=== PATIENT | female | born 1955 | race Caucasian/White ===

== ENCOUNTER → 2016-09-13 | Outpatient (CLI) | payer BC, OTHER ==
[~2016-09-13] MED LIST: ASPI81TAEC PO; CETI10TA PO; NORC1TAB4 PO; SENO8.6T10 PO; VITA100066 PO; VITAE20CA PO; VITMTA PO
== END ==
LOC: M WUC 17:14
PROVIDERS: ATTEND Internal Medicine Pulmonary Disease
DX: R06.02 Shortness of breath (principal)

== ENCOUNTER → 2016-10-05 | Outpatient (CLI) | payer BC, OTHER ==
[~2016-10-05] MED LIST changes: +METHACHOLINE KIT (J7674) INH ONE
--- NOTE | 2016-10-05 15:11 | PFTRPT ---
Tech: Alison COVARRUBIAS RRT Age: 61 Sex: Female Race: Height: 50.50 Inches Weight: 194.00 Lbs BSA: 1.63 Diagnosis: R06.02 METHACHOLINE CHALLENGE REPORT: ORDERING PROVIDER: Sandor Colin M.D. DATE OF SERVICE: 10/05/16 INTERPRETATION: The study was of excellent technical quality. Under protocol, methacholine was administered. Even after a maximal dose of 25 mg (188.875 CDUs) of methacholine , no provocation dose was ever achieved. IMPRESSION: Negative methacholine challenge study. MTDD
== END ==
LOC: M CARPUL 13:41
PROVIDERS: ATTEND Internal Medicine Pulmonary Disease
DX: R06.02 Shortness of breath (principal)

== ENCOUNTER → 2018-04-25 | Outpatient (CLI) | payer BC, OTHER ==
[~2018-04-25] MED LIST changes: -METHACHOLINE KIT (J7674) INH ONE
[2018-04-25 18:42] LABS: HEMATOCRIT 39.8 % (36.0-47.0); HEMOGLOBIN 13.3 g/dl (12.0-15.5); MEAN CORPUSCULAR HEMOGLOBIN 29.7 pg (27.0-33.0); MEAN CORPUSCULAR HGB CONC 33.4 g/dl (32.0-36.5); MEAN CORPUSCULAR VOLUME 88.8 fl (80.0-96.0); PLATELET COUNT, AUTOMATED 159 10^3/uL (150-450); RED BLOOD COUNT 4.48 10^6/uL (4.00-5.40); WHITE BLOOD COUNT 6.7 10^3/uL (4.0-10.0)
[2018-04-25 19:02] LABS: INR 0.96; PARTIAL THROMBOPLASTIN TIME 30.6 SECONDS (25.4-37.6); PROTHROMBIN TIME 12.9 SECONDS (12.1-14.4)
[2018-04-25 19:10] LABS: ALBUMIN 3.8 GM/DL (3.2-5.2); ALT/SGPT 31 U/L (12-78); BILIRUBIN,DIRECT < 0.1 MG/DL (0.0-0.2); BILIRUBIN,TOTAL 0.3 MG/DL (0.2-1.0); BLOOD UREA NITROGEN 12 MG/DL (7-18); CALCIUM LEVEL 9.7 MG/DL (8.8-10.2); CARBON DIOXIDE LEVEL 29 MEQ/L (21-32); CHLORIDE LEVEL 105 MEQ/L (98-107); CREATININE FOR GFR 0.69 MG/DL (0.55-1.30); FERRITIN 260 NG/ML (8-252); GLOMERULAR FILTRATION RATE > 60.0 (>45); GLUCOSE, FASTING 104 MG/DL (70-100); IRON (FE) 75 UG/DL (50-170); PERCENT SATURATION 24.6 % (13.2-45.0); POTASSIUM SERUM 3.9 MEQ/L (3.5-5.1); SODIUM LEVEL 141 MEQ/L (136-145); TOTAL 25(OH) VITAMIN D 46.9 NG/ML (30.0-100.0); TOTAL IRON BINDING CAPACITY 305 UG/DL (250-450); TOTAL PROTEIN 7.2 GM/DL (6.4-8.2)
[2018-04-26 10:43] LABS: HEPATITIS A ANTIBODY IGM NEGATIVE (NEGATIVE); HEPATITIS B SURFACE ANTIGEN NEGATIVE (NEGATIVE); HEPATITIS C VIRUS ABY INDEX 0.1 INDEX (<0.8)
[2018-04-26 10:49] LABS: HEPATITIS B SURFACE ANTIBODY NEGATIVE (POSITIVE)
== END ==
LOC: M LAB 15:45
PROVIDERS: ATTEND Internal Medicine Gastroenterology
DX: K59.1 Functional diarrhea (principal); R14.3 Flatulence; R94.5 Abnormal results of liver function studies; Z12.11 Encounter for screening for malignant neoplasm of colon; K76.0 Fatty (change of) liver, not elsewhere classified

== ENCOUNTER → 2018-04-26 | Outpatient (REF) | payer BC, OTHER | LOC: M LAB REF 10:37 | PROVIDERS: ATTEND Surgery | DX: K59.1 Functional diarrhea (principal); R14.3 Flatulence; Z12.11 Encounter for screening for malignant neoplasm of colon ==

== ENCOUNTER → 2018-04-28 | Outpatient (REF) | payer BC, OTHER | LOC: M LAB REF 10:17 | PROVIDERS: ATTEND Internal Medicine Gastroenterology | DX: Z12.11 Encounter for screening for malignant neoplasm of colon (principal); K64.5 Perianal venous thrombosis; K59.1 Functional diarrhea; R14.3 Flatulence; K76.0 Fatty (change of) liver, not elsewhere classified; R94.5 Abnormal results of liver function studies ==

== ENCOUNTER → 2018-06-28 | Outpatient (CLI) | payer BC, OTHER ==
[~2018-06-28] MED LIST changes: -NORC1TAB4 PO; +NORC1TAB7 PO
[2018-06-28 12:18] LABS: INR 0.97
[2018-06-28 12:19] LABS: PARTIAL THROMBOPLASTIN TIME 28.1 SECONDS (25.4-37.6)
== END ==
LOC: M LAB 11:30
PROVIDERS: ATTEND Internal Medicine Gastroenterology
DX: R94.5 Abnormal results of liver function studies (principal); K76.0 Fatty (change of) liver, not elsewhere classified

== ENCOUNTER → 2018-07-07 | Outpatient (CLI) | payer BC, OTHER ==
[~2018-07-07] MED LIST changes: +LIDOCAINE 1% MDV 20ML VIAL As Ordered ONE
--- NOTE | 2018-07-07 17:28 | REP ---
ULTRASOUND-GUIDED LIVER BIOPSY The procedure was performed under the direct supervision of Dr. Mcguire. The risks and benefits of the procedure were explained to the patient and informed consent was obtained. The left lobe of the liver was localized using ultrasound guidance. The skin was prepped and draped in a sterile fashion. 1% lidocaine was used as a local anesthetic. Using ultrasound guidance a 19/20 gauge coaxial needle biopsy system was inserted and advanced into the liver. Five core biopsy samples were obtained and sent to lab. The patient tolerated the procedure well and there were no immediate complications. After the appropriate amount of monitored convalescence the patient was discharged from the department. Reviewed by INES Harp 07/07/2018 03:18 P Electronically Signed by Theodore Mcguire MD 07/07/2018 05:19 P
== END ==
LOC: M RADPRO 08:40
PROVIDERS: ATTEND Internal Medicine Gastroenterology
DX: K74.0 Hepatic fibrosis (principal); K75.9 Inflammatory liver disease, unspecified; K76.0 Fatty (change of) liver, not elsewhere classified; R94.5 Abnormal results of liver function studies; Z88.0 Allergy status to penicillin; Z88.2 Allergy status to sulfonamides

== ENCOUNTER → 2018-11-03 | Outpatient (CLI) | payer BC, OTHER ==
[~2018-11-03] MED LIST changes: -LIDOCAINE 1% MDV 20ML VIAL As Ordered ONE
[2018-11-03 09:28] LABS: HEMOGLOBIN 13.8 g/dl (12.0-15.5); MEAN CORPUSCULAR HEMOGLOBIN 29.6 pg (27.0-33.0); MEAN CORPUSCULAR HGB CONC 33.7 g/dl (32.0-36.5); PLATELET COUNT, AUTOMATED 144 10^3/uL (150-450); RED BLOOD COUNT 4.66 10^6/uL (4.00-5.40); WHITE BLOOD COUNT 5.9 10^3/uL (4.0-10.0)
[2018-11-03 09:40] LABS: INR 1.06; PROTHROMBIN TIME 13.5 SECONDS (11.8-14.0)
[2018-11-03 09:53] LABS: ALT/SGPT 27 U/L (12-78); BILIRUBIN,TOTAL 0.5 MG/DL (0.2-1.0); BLOOD UREA NITROGEN 18 MG/DL (7-18); CALCIUM LEVEL 9.7 MG/DL (8.8-10.2); CARBON DIOXIDE LEVEL 28 MEQ/L (21-32); CHLORIDE LEVEL 109 MEQ/L (98-107); CREATININE FOR GFR 0.74 MG/DL (0.55-1.30); GLOMERULAR FILTRATION RATE > 60.0 (>45); GLUCOSE, FASTING 90 MG/DL (70-100); POTASSIUM SERUM 3.8 MEQ/L (3.5-5.1); SODIUM LEVEL 143 MEQ/L (136-145); TOTAL PROTEIN 7.3 GM/DL (6.4-8.2)
== END ==
LOC: M LAB 08:29
PROVIDERS: ATTEND Internal Medicine Gastroenterology
DX: K76.0 Fatty (change of) liver, not elsewhere classified (principal); R14.0 Abdominal distension (gaseous); R11.0 Nausea; R94.5 Abnormal results of liver function studies

== ENCOUNTER → 2019-05-16 | Outpatient (CLI) | payer BC, OTHER ==
[2019-05-16 12:54] LABS: MEAN CORPUSCULAR HEMOGLOBIN 28.9 pg (27.0-33.0); MEAN CORPUSCULAR HGB CONC 33.3 g/dl (32.0-36.5); MEAN CORPUSCULAR VOLUME 86.8 fl (80.0-96.0); PLATELET COUNT, AUTOMATED 165 10^3/uL (150-450); RED BLOOD COUNT 4.84 10^6/uL (4.00-5.40); WHITE BLOOD COUNT 6.8 10^3/uL (4.0-10.0)
[2019-05-16 13:35] LABS: ALBUMIN 4.1 GM/DL (3.2-5.2); ALT/SGPT 25 U/L (12-78); BILIRUBIN,TOTAL 0.3 MG/DL (0.2-1.0); BLOOD UREA NITROGEN 15 MG/DL (7-18); CALCIUM LEVEL 10.6 MG/DL (8.8-10.2); CARBON DIOXIDE LEVEL 33 MEQ/L (21-32); CHLORIDE LEVEL 105 MEQ/L (98-107); CREATININE FOR GFR 0.67 MG/DL (0.55-1.30); GLOMERULAR FILTRATION RATE > 60.0 (>45); GLUCOSE, FASTING 96 MG/DL (70-100); POTASSIUM SERUM 4.3 MEQ/L (3.5-5.1); SODIUM LEVEL 140 MEQ/L (136-145); TOTAL PROTEIN 7.4 GM/DL (6.4-8.2)
== END ==
LOC: M LAB 12:16
PROVIDERS: ATTEND Internal Medicine Gastroenterology
DX: R94.5 Abnormal results of liver function studies (principal)

== ENCOUNTER → 2019-05-28 | Outpatient (CLI) | payer BC, OTHER ==
--- NOTE | 2019-05-28 09:42 | REP ---
RIGHT UPPER QUADRANT ULTRASOUND: Real-time sonographic evaluation of the right upper quadrant performed. The patient has had prior cholecystectomy. There is no intrahepatic or extrahepatic biliary dilatation. Common bile duct measures 7 mm. Echotexture of the liver is mildly heterogeneously and echogenic suggesting mild fibrofatty infiltration. The pancreatic tail is not well visualized due to overlying bowel gas. No gross liver or pancreatic mass is seen. Right kidney demonstrates no hydronephrosis with normal size 10.5 cm in length. There is no free fluid. IMPRESSION: Status post cholecystectomy without biliary dilatation or free fluid. Possible mild fibrofatty infiltration of the liver. Electronically Signed by Sheldon Alberts MD 05/28/2019 01:22 P
== END ==
LOC: M RAD 07:43
PROVIDERS: ATTEND Nurse Practitioner Family
DX: K76.0 Fatty (change of) liver, not elsewhere classified (principal)

== ENCOUNTER → 2019-08-07 | Outpatient (REF) | payer BC, OTHER | LOC: M WUC 13:08 | PROVIDERS: ATTEND Physician Assistant | DX: J02.9 Acute pharyngitis, unspecified (principal); Z11.59 Encounter for screening for other viral diseases | CPT/HCPCS: 87081; 87502; U0003 ==

== ENCOUNTER → 2020-01-08 | Outpatient (CLI) | payer BC, OTHER | LOC: M LAB 08:07 | PROVIDERS: ATTEND Internal Medicine Gastroenterology | DX: R94.5 Abnormal results of liver function studies (principal); K75.81 Nonalcoholic steatohepatitis (NASH) ==

== ENCOUNTER 2020-01-18 17:14 | Emergency (ER) | payer BC, OTHER ==
[~2020-01-18] VITALS: Ht 147.3 cm; Wt 77.8 kg
--- NOTE | 2020-01-18 18:02 | REPVR ---
PROCEDURE INFORMATION: Exam: US Duplex Left Lower Extremity Veins, Limited Exam date and time: 01/18/2020 5:53 PM Age: 64 years old Clinical indication: Pain; Leg, upper; Left; Additional info: Swelling pain/ RO dvt TECHNIQUE: Imaging protocol: Real-time Duplex ultrasound of the Left Lower Extremity with 2-D valentine scale, color Doppler flow and spectral waveform analysis with image documentation. Limited exam focused on the left lower extremity veins. COMPARISON: US Duplex, Ext,LOWER veins,unilat 10/11/2015 8:08 PM FINDINGS: Left deep veins: Unremarkable. The common femoral, femoral, proximal profunda femoral and popliteal veins are patent without thrombus. Normal Doppler waveforms. Normal compressibility and/or augmentation response. Left superficial veins: Unremarkable. Saphenofemoral junction is patent without thrombus. Soft tissues: Unremarkable. IMPRESSION: No evidence of deep vein thrombosis. Electronically signed by: Mitch Chen On 01/18/2020 18:02:20 PM
[2020-01-18 18:48] VITALS: BP 129/79
== END 2020-01-18 18:50 | disposition home or self-care (01) ==
LOC: M ED 17:14
DX: M79.661 Pain in right lower leg (principal); J45.909 Unspecified asthma, uncomplicated; K76.0 Fatty (change of) liver, not elsewhere classified; Z88.0 Allergy status to penicillin; Z88.2 Allergy status to sulfonamides; Z79.899 Other long term (current) drug therapy; Z79.82 Long term (current) use of aspirin

== ENCOUNTER → 2020-02-15 | Outpatient (CLI) | payer BC, OTHER ==
[2020-02-15 09:55] LABS: HEMATOCRIT 42.3 % (36.0-47.0); HEMOGLOBIN 13.8 g/dl (12.0-15.5); MEAN CORPUSCULAR HEMOGLOBIN 28.8 pg (27.0-33.0); MEAN CORPUSCULAR HGB CONC 32.6 g/dl (32.0-36.5); MEAN CORPUSCULAR VOLUME 88.1 fl (80.0-96.0); PLATELET COUNT, AUTOMATED 148 10^3/uL (150-450); WHITE BLOOD COUNT 5.3 10^3/uL (4.0-10.0)
[2020-02-15 10:07] LABS: INR 0.98; PROTHROMBIN TIME 13.2 SECONDS (12.5-14.3)
[2020-02-15 10:23] LABS: ALT/SGPT 23 U/L (12-78); BILIRUBIN,TOTAL 0.5 MG/DL (0.2-1.0); BLOOD UREA NITROGEN 15 MG/DL (7-18); CARBON DIOXIDE LEVEL 28 MEQ/L (21-32); CHLORIDE LEVEL 108 MEQ/L (98-107); CREATININE FOR GFR 0.77 MG/DL (0.55-1.30); GLOMERULAR FILTRATION RATE > 60.0 (>45); GLUCOSE, FASTING 83 MG/DL (70-100); POTASSIUM SERUM 4.3 MEQ/L (3.5-5.1); SODIUM LEVEL 141 MEQ/L (136-145); TOTAL PROTEIN 7.3 GM/DL (6.4-8.2)
--- NOTE | 2020-02-15 16:27 | REP ---
INDICATION: RAO US 1ST LABS NEXT COMPARISON: 05/28/2019 TECHNIQUE: Real time valentine scale ultrasound examination using curved array transducer. FINDINGS: Liver is normal in contour, size, and echogenicity without focal hepatic lesions identified. Pancreas is incompletely evaluated due to interposed bowel gas. The gallbladder has been surgically removed. No biliary ductal dilatation is appreciated and the common bile duct measures 6.3 mm diameter. Right kidney is normal in reniform shape without hydronephrosis and measures 11.3 x 4.1 x 5.4 cm. No ascites in the visualized right upper quadrant. IMPRESSION: Normal limited right upper quadrant ultrasound evidence for prior cholecystectomy. <Electronically signed by Mode Conner > 02/15/20 [id number]
== END ==
LOC: M RAD 08:01
PROVIDERS: ATTEND Internal Medicine Gastroenterology
DX: K75.81 Nonalcoholic steatohepatitis (NASH) (principal); Z12.11 Encounter for screening for malignant neoplasm of colon; Z80.0 Family history of malignant neoplasm of digestive organs; Z90.49 Acquired absence of other specified parts of digestive tract

== ENCOUNTER → 2020-04-10 | Outpatient (CLI) | payer BC, OTHER | LOC: M LABSMTC 11:30 | PROVIDERS: ATTEND Family Medicine | DX: Z20.822 Contact with and (suspected) exposure to COVID-19 (principal) ==

== ENCOUNTER → 2020-10-01 | Outpatient (CLI) | payer BC, OTHER ==
[~2020-10-01] MED LIST changes: +ASPI-569 PO; -ASPI81TAEC PO
--- NOTE | 2020-10-01 09:08 | REP ---
INDICATION: RAO *US 1ST, LABS 2ND* COMPARISON: 02/15/2020 TECHNIQUE: Real time valentine scale ultrasound examination using curved array transducer. FINDINGS: Liver is normal in contour, size, and echogenicity without focal hepatic lesions identified. Pancreas is normal in contour, size, and echogenicity. Evidence for prior cholecystectomy. No biliary ductal dilatation is appreciated and the common bile duct measures 6.0 mm diameter. Right kidney is normal in reniform shape without hydronephrosis and measures 10.0 x 5.4 x 4.3 cm. No ascites in the visualized right upper quadrant. IMPRESSION: Normal limited right upper quadrant ultrasound Current examination without significant hepatosteatosis suggested. <Electronically signed by Mode Conner > 10/01/20 [id number]
[2020-10-01 09:53] LABS: HEMATOCRIT 43.3 % (36.0-47.0); HEMOGLOBIN 14.1 g/dl (12.0-15.5); MEAN CORPUSCULAR HGB CONC 32.6 g/dl (32.0-36.5); MEAN CORPUSCULAR VOLUME 88.9 fl (80.0-96.0); PLATELET COUNT, AUTOMATED 155 10^3/uL (150-450); RED BLOOD COUNT 4.87 10^6/uL (4.00-5.40)
[2020-10-01 10:30] LABS: ALBUMIN 3.8 GM/DL (3.2-5.2); ALT/SGPT 23 U/L (12-78); BILIRUBIN,TOTAL 0.4 MG/DL (0.2-1.0); BLOOD UREA NITROGEN 14 MG/DL (7-18); CALCIUM LEVEL 9.6 MG/DL (8.8-10.2); CARBON DIOXIDE LEVEL 33 MEQ/L (21-32); CHLORIDE LEVEL 107 MEQ/L (98-107); CREATININE FOR GFR 0.72 MG/DL (0.55-1.30); GLOMERULAR FILTRATION RATE > 60.0 (>45); GLUCOSE, FASTING 84 MG/DL (70-100); POTASSIUM SERUM 4.4 MEQ/L (3.5-5.1); SODIUM LEVEL 140 MEQ/L (136-145); TOTAL PROTEIN 7.1 GM/DL (6.4-8.2)
== END ==
LOC: M RAD 07:52
PROVIDERS: ATTEND Student in an Organized Health Care Education/Training Program
DX: K75.81 Nonalcoholic steatohepatitis (NASH) (principal); K76.0 Fatty (change of) liver, not elsewhere classified; Z88.2 Allergy status to sulfonamides

== ENCOUNTER → 2021-01-27 | Outpatient (REF) | payer BC, OTHER | LOC: M LAB REF 11:15 | PROVIDERS: ATTEND Internal Medicine | DX: E83.52 Hypercalcemia (principal) ==

== ENCOUNTER → 2021-08-27 | Outpatient (CLI) | payer BC, OTHER | LOC: M WUC 09:19 | PROVIDERS: ATTEND Registered Nurse | DX: M54.2 Cervicalgia (principal) ==

== ENCOUNTER → 2022-04-06 | Outpatient (CLI) | payer BC, OTHER | LOC: M WUC 08:12 | PROVIDERS: ATTEND Physician Assistant | DX: S63.502A Unspecified sprain of left wrist, initial encounter (principal); S63.8X2A Sprain of other part of left wrist and hand, initial encounter; W18.30XA Fall on same level, unspecified, initial encounter; Y92.009 Unspecified place in unspecified non-institutional (private) residence as the place of occurrence of the external cause ==

== ENCOUNTER 2022-05-03 06:40 | Emergency (ER) | payer OTHER, BC ==
[~2022-05-03] VITALS: Ht 147.3 cm; Wt 88.2 kg
[2022-05-03 12:00] VITALS: BP 135/58
== END 2022-05-03 12:30 | disposition home or self-care (01) ==
LOC: M ED 06:40
DX: S83.92XA Sprain of unspecified site of left knee, initial encounter (principal); S43.402A Unspecified sprain of left shoulder joint, initial encounter; W10.9XXA Fall (on) (from) unspecified stairs and steps, initial encounter; Y92.89 Other specified places as the place of occurrence of the external cause; G47.30 Sleep apnea, unspecified; K76.0 Fatty (change of) liver, not elsewhere classified; Z88.0 Allergy status to penicillin; Z88.2 Allergy status to sulfonamides; Z79.82 Long term (current) use of aspirin; Z79.899 Other long term (current) drug therapy

== ENCOUNTER → 2022-07-02 | Outpatient (CLI) | payer OTHER | LOC: M PLAIMG 12:47 | PROVIDERS: ATTEND Physician Assistant | DX: S43.401A Unspecified sprain of right shoulder joint, initial encounter (principal); W18.30XA Fall on same level, unspecified, initial encounter; Y92.009 Unspecified place in unspecified non-institutional (private) residence as the place of occurrence of the external cause ==

== ENCOUNTER → 2022-11-02 | Outpatient (CLI) | payer OTHER | LOC: M WUC 08:10 | PROVIDERS: ATTEND Internal Medicine | DX: R06.02 Shortness of breath (principal) ==

== ENCOUNTER → 2022-11-24 | Outpatient (CLI) | payer BC, OTHER | LOC: M RAD 08:50 | PROVIDERS: ATTEND Internal Medicine | DX: R91.8 Other nonspecific abnormal finding of lung field (principal) ==

== ENCOUNTER → 2023-01-25 | Outpatient (REF) | payer BC, OTHER | LOC: M LAB REF 12:47 | PROVIDERS: ATTEND Internal Medicine | DX: J44.9 Chronic obstructive pulmonary disease, unspecified (principal); K75.81 Nonalcoholic steatohepatitis (NASH) ==

== ENCOUNTER → 2023-06-16 | Outpatient (CLI) | payer BC | LOC: M PLAIMG 10:05 | PROVIDERS: ATTEND Nurse Practitioner Family | DX: R91.8 Other nonspecific abnormal finding of lung field (principal) ==

== ENCOUNTER → 2023-08-18 | Outpatient (CLI) | payer BC | LOC: M WUC 08:09 | PROVIDERS: ATTEND Nurse Practitioner Family | DX: M25.572 Pain in left ankle and joints of left foot (principal) ==

== ENCOUNTER → 2023-10-17 | Outpatient (CLI) | payer BC | LOC: M WUC 10:10 | PROVIDERS: ATTEND Student in an Organized Health Care Education/Training Program | DX: M25.572 Pain in left ankle and joints of left foot (principal) ==

== ENCOUNTER → 2023-10-24 | Outpatient (REF) | payer BC ==
[2023-10-25 12:47] LABS: EBV AB TO NUCLEAR ANTIGEN < 18.00 U/mL (<18.00); EBV VIRAL CAPSID AG IGM < 36.00 U/mL (<36.00)
== END ==
LOC: M LAB REF 12:20
PROVIDERS: ATTEND Internal Medicine
DX: R53.83 Other fatigue (principal); R53.81 Other malaise; M25.50 Pain in unspecified joint

== ENCOUNTER → 2023-11-01 | Outpatient (CLI) | payer BC | LOC: M LAB 15:56 | PROVIDERS: ATTEND Internal Medicine Gastroenterology | DX: K75.81 Nonalcoholic steatohepatitis (NASH) (principal); R94.5 Abnormal results of liver function studies ==

== ENCOUNTER → 2023-11-07 | Outpatient (CLI) | payer BC ==
[2023-11-07 18:54] LABS: C REACTIVE PROTEIN QUANTITATIV 0.5 MG/DL (<1.0)
[2023-11-07 18:56] LABS: FREE T3 2.9 PG/ML (2.3-4.2)
== END ==
LOC: M WUC 12:55
PROVIDERS: ATTEND Internal Medicine
DX: M79.672 Pain in left foot (principal); R53.83 Other fatigue; M25.50 Pain in unspecified joint

== ENCOUNTER → 2024-01-24 | Outpatient (CLI) | payer MEDICARE ==
[2024-01-24 09:38] LABS: BLOOD UREA NITROGEN 11 MG/DL (9-23); CREATININE FOR GFR 0.62 MG/DL (0.55-1.30); GLOMERULAR FILTRATION RATE > 60.0 (>45)
== END ==
LOC: M LAB 08:23
PROVIDERS: ATTEND Internal Medicine Gastroenterology
DX: Z01.812 Encounter for preprocedural laboratory examination (principal)

== ENCOUNTER → 2024-01-30 | Outpatient (CLI) | payer MEDICARE ==
[~2024-01-30] MED LIST changes: +GASTROGRAFIN SOLUTION 30ML As Ordered ONE; +ISOVUE-370 76% 100ML VIAL As Ordered ONE
== END ==
LOC: M RAD 11:58
PROVIDERS: ATTEND Internal Medicine Gastroenterology
DX: R74.01 Elevation of levels of liver transaminase levels (principal)
CPT/HCPCS: 74177; Q9963; Q9967

== ENCOUNTER → 2024-03-02 | Outpatient (REF) | payer MEDICARE ==
[~2024-03-02] MED LIST changes: -GASTROGRAFIN SOLUTION 30ML As Ordered ONE; -ISOVUE-370 76% 100ML VIAL As Ordered ONE
== END ==
LOC: M LAB REF 16:44
PROVIDERS: ATTEND Internal Medicine
DX: M25.50 Pain in unspecified joint (principal)

== ENCOUNTER → 2024-03-06 | Outpatient (REF) | payer MEDICARE ==
[2024-03-06 12:53] LABS: APPEARANCE, URINE HAZY (CLEAR); BACTERIA, URINE AUTO NEGATIVE (NEGATIVE); BILIRUBIN, URINE AUTO NEGATIVE (NEGATIVE); BLOOD, URINE BLOOD NEGATIVE (NEGATIVE); CALCIUM OXALATE CRYSTALS SMALL; COLOR, URINE YELLOW (YELLOW); GLUCOSE, URINE (UA) AUTO NEGATIVE (NEGATIVE); KETONE, URINE AUTO NEGATIVE (NEGATIVE); LEUKOCYTE ESTERASE, URINE AUTO NEGATIVE (NEGATIVE); MUCUS, URINE SMALL (NEGATIVE); NITRITE, URINE AUTO NEGATIVE (NEGATIVE); PROTEIN, URINE AUTO NEGATIVE (NEGATIVE); RBC, URINE AUTO 2 /HPF (0-3); SPECIFIC GRAVITY URINE AUTO 1.024 (1.002-1.035); SQUAMOUS EPITHELIAL CELL UR AU 1 /HPF (0-6); UROBILINOGEN, URINE AUTO 0.2 mg/dL (0.0-2.0); WBC, URINE AUTO 2 /HPF (0-3)
== END ==
LOC: M LAB REF 12:04
PROVIDERS: ATTEND Internal Medicine
DX: R31.9 Hematuria, unspecified (principal)

== ENCOUNTER → 2024-05-02 | Outpatient (CLI) | payer MEDICARE | LOC: M WUC 11:39 | PROVIDERS: ATTEND Nurse Practitioner Family | DX: R06.02 Shortness of breath (principal) ==

== ENCOUNTER → 2024-07-04 | Outpatient (CLI) | payer MEDICARE | LOC: M PLAIMG 09:30 | PROVIDERS: ATTEND Physician Assistant | DX: J43.9 Emphysema, unspecified (principal); G47.33 Obstructive sleep apnea (adult) (pediatric); R91.8 Other nonspecific abnormal finding of lung field ==

== ENCOUNTER → 2024-12-06 | Outpatient (CLI) | payer MEDICARE | LOC: M RAD 09:04 | PROVIDERS: ATTEND Nurse Practitioner Acute Care | DX: I70.0 Atherosclerosis of aorta (principal); I08.3 Combined rheumatic disorders of mitral, aortic and tricuspid valves ==

== ENCOUNTER → 2024-12-21 | Outpatient (REF) | payer MEDICARE | LOC: M LAB REF 12-20 11:50 | PROVIDERS: ATTEND Nurse Practitioner Family | DX: R19.7 Diarrhea, unspecified (principal); R10.30 Lower abdominal pain, unspecified ==

== ENCOUNTER → 2025-01-29 | Outpatient (CLI) | payer MEDICARE | LOC: M RAD 07:54 | PROVIDERS: ATTEND Internal Medicine Gastroenterology | DX: K76.0 Fatty (change of) liver, not elsewhere classified (principal); R94.5 Abnormal results of liver function studies; D69.6 Thrombocytopenia, unspecified; Z80.0 Family history of malignant neoplasm of digestive organs ==

== ENCOUNTER → 2025-02-12 | Outpatient (REF) | payer MEDICARE ==
[2025-02-12 12:39] LABS: INR 1.01
== END ==
LOC: M LAB REF 11:52
PROVIDERS: ATTEND Internal Medicine
DX: R94.5 Abnormal results of liver function studies (principal); K75.81 Nonalcoholic steatohepatitis (NASH)

== ENCOUNTER → 2025-02-25 | Outpatient (CLI) | payer MEDICARE ==
[~2025-02-25] MED LIST changes: +GADOXETATE DISODIUM 2.5 MMOL/10 ML VIAL As Ordered ONE
== END ==
LOC: M RAD 14:38
PROVIDERS: ATTEND Internal Medicine Gastroenterology
DX: R93.3 Abnormal findings on diagnostic imaging of other parts of digestive tract (principal); R94.5 Abnormal results of liver function studies; D69.6 Thrombocytopenia, unspecified; K75.81 Nonalcoholic steatohepatitis (NASH)
CPT/HCPCS: 74183; A9581